=== PATIENT | male | born 1935 | race African-American/Black ===

== ENCOUNTER 2021-04-27 19:59 | Inpatient (IN) | payer OTHER ==
[~2021-04-27] VITALS: Ht 172.7 cm; Wt 69.9 kg
[2021-04-27] MEDS ORDERED: PIPERACILLIN/TAZ 3.375G PREMIX 50 ML IV ONE (20:15)
[2021-04-27] MEDS ORDERED: SODIUM CHLORIDE 0.9% 1,000 ML IV ONE (20:15)
[2021-04-27] MEDS ORDERED: VANCOMYCIN 1 G PREMIX 200 ML IV ONE (20:15)
[2021-04-27 20:48] LABS: HEMATOCRIT. 26.1 % (42.0-52.0); HEMOGLOBIN. 8.5 g/dL (14.0-18.0); MEAN CORPUSCULAR HEMOGLOBIN 31.9 pg (28.0-32.0); MEAN CORPUSCULAR VOLUME 97.7 fL (80.0-94.0); MEAN PLATELET VOLUME 8.5 fl (7.4-10.4); PLATELET 132 x1000/uL (130-400); RED BLOOD CELL COUNT 2.67 mill/uL (4.7-6.1); RED CELL DISTRIBUTION WIDTH 12.9 % (11.6-14.6)
[2021-04-27 20:53] LABS: CHLORIDE 111 mEq/L (98-107)
[2021-04-27 20:56] LABS: INR 1.3; PROTHROMBIN TIME 13.4 sec (9.6-11.0)
[2021-04-27 20:57] LABS: ETHANOL BLOOD < 10 mg/dL
[2021-04-27 21:21] LABS: PLATELET ESTIMATE NORMAL
[2021-04-27 21:22] LABS: CLARITY URINE CLOUDY (CLEAR); COLOR URINE YELLOW (YELLOW); KETONES URINE NEGATIVE (NEGATIVE); LEUKOCYTE ESTERASE URINE NEGATIVE (NEGATIVE); NITRITE URINE NEGATIVE (NEGATIVE); OCCULT BLOOD URINE NEGATIVE (NEGATIVE); PROTEIN URINE 1+ (NEGATIVE); SPECIFIC GRAVITY URINE 1.015 (1.005-1.030); UROBILINOGEN URINE 0.2 E.U./dL (0.2-1.0)
[2021-04-27 21:32] LABS: *AMPHETAMINES SCREEN URINE NEGATIVE (NEGATIVE); *BARBITURATES SCREEN URINE NEGATIVE (NEGATIVE)
[2021-04-27 21:33] LABS: *BENZODIAZEPINES SCREEN URINE NEGATIVE (NEGATIVE); *COCAINE SCREEN URINE NEGATIVE (NEGATIVE); CANNABINOID URINE SCREEN NEGATIVE (NEGATIVE); METHADONE URINE SCREEN NEGATIVE (NEGATIVE); OPIATES URINE SCREEN NEGATIVE (NEGATIVE); PHENCYCLIDINE URINE SCREEN NEGATIVE (NEGATIVE)
[2021-04-27 22:30] VITALS: BP 116/64
[2021-04-28] VITALS (12 sets, daily range): BP systolic 92–131; BP diastolic 22–70
[2021-04-28] MEDS ORDERED: DONE10TA43 PO (00:54)
[2021-04-28] MEDS ORDERED: LEVO75TA7 PO (00:54)
[2021-04-28] MEDS ORDERED: ACETAMINOPHEN 650MG/20.3ML UDC PO PRN (01:15)
[2021-04-28] MEDS ORDERED: VANCOMYCIN 1 G PREMIX 200 ML IV NR (02:00)
[2021-04-28] MEDS: DEXT 5%/0.45% NACL KCL 20MEQ/L 1,000 ML IV SCH ×2 (04:37→13:18)
[2021-04-28 05:11] LABS: CHLORIDE 111 mEq/L (98-107)
[2021-04-28] MEDS ORDERED: PIPERACILLIN/TAZOBACTAM 3.375 G/VIAL IV SCH (06:00)
[2021-04-28 06:01] LABS: HEMATOCRIT. 25.4 % (42.0-52.0); MEAN CORPUSCULAR HEMOGLOBIN 30.9 pg (28.0-32.0); MEAN CORPUSCULAR VOLUME 97.8 fL (80.0-94.0); MEAN PLATELET VOLUME 9.6 fl (7.4-10.4); PLATELET 122 x1000/uL (130-400); RED CELL DISTRIBUTION WIDTH 13.1 % (11.6-14.6)
[2021-04-28] MEDS: PIPERACILLIN/TAZOBACTAM 3.375 G in DEXT 5% WATER 100 ML IV SCH ×3 (06:45→21:22)
[2021-04-28] MEDS: LEVOTHYROXINE SODIUM 75MCG TABLET PO SCH (07:30)
[2021-04-28] MEDS: DONEPEZIL HCL 10MG TABLET PO SCH (08:56)
[2021-04-28] MEDS: PANTOPRAZOLE SODIUM 40 MG/VIAL IV SCH (08:57)
[2021-04-28] MEDS: ENOXAPARIN 40MG/0.4ML SYR SUBCUT SCH (08:58)
[2021-04-28] MEDS ORDERED: DEXTROSE 50% WATER 50ML SYRINGE IV PRN (10:15)
[2021-04-28 10:53] LABS: TOTAL IRON BINDING CAPACITY 114 ug/dL (250-450)
[2021-04-28] MEDS: BLOOD SUGAR DIAGNOSTIC STRIP TEST SCH ×3 (12:43→21:22)
[2021-04-28] MEDS: ACETAMINOPHEN 650MG SUPP PR PRN ×2 (13:19→22:00)
[2021-04-28] MEDS: INSULIN LISPRO 100 UNITS/ML SUBCUT SCH ×3 (13:20→21:23)
[2021-04-28 14:08] LABS: PLATELET ESTIMATE SLIGHTLY DECREASED
[2021-04-28] MEDS ORDERED: LORAZEPAM 2MG/ML CPJ IV NR (15:15)
[2021-04-28] MEDS: VANCOMYCIN 1 G PREMIX 200 ML IV SCH (17:57)
[2021-04-29] VITALS (11 sets, daily range): BP systolic 90–115; BP diastolic 28–68
[2021-04-29] MEDS: DEXT 5%/0.45% NACL KCL 20MEQ/L 1,000 ML IV SCH ×2 (03:21→09:21)
[2021-04-29] MEDS: PIPERACILLIN/TAZOBACTAM 3.375 G in DEXT 5% WATER 100 ML IV SCH ×3 (06:35→22:59)
[2021-04-29 06:36] LABS: HEMATOCRIT. 25.9 % (42.0-52.0); HEMOGLOBIN. 8.1 g/dL (14.0-18.0); MEAN CORPUSCULAR HEMOGLOBIN 30.2 pg (28.0-32.0); MEAN CORPUSCULAR VOLUME 96.6 fL (80.0-94.0); MEAN PLATELET VOLUME 9.3 fl (7.4-10.4); PLATELET 136 x1000/uL (130-400); RED BLOOD CELL COUNT 2.69 mill/uL (4.7-6.1); RED CELL DISTRIBUTION WIDTH 13.3 % (11.6-14.6)
[2021-04-29] MEDS: BLOOD SUGAR DIAGNOSTIC STRIP TEST SCH ×4 (07:30→21:00)
[2021-04-29] MEDS: LEVOTHYROXINE SODIUM 75MCG TABLET PO SCH (07:30)
[2021-04-29] MEDS: INSULIN LISPRO 100 UNITS/ML SUBCUT SCH ×3 (08:00→21:00)
[2021-04-29] MEDS: DONEPEZIL HCL 10MG TABLET PO SCH (09:00)
[2021-04-29] MEDS: PANTOPRAZOLE SODIUM 40 MG/VIAL IV SCH (09:19)
[2021-04-29] MEDS: ENOXAPARIN 40MG/0.4ML SYR SUBCUT SCH (09:20)
[2021-04-29 12:19] LABS: PLATELET ESTIMATE NORMAL
[2021-04-29] MEDS: VANCOMYCIN 1 G PREMIX 200 ML IV SCH (13:50)
[2021-04-29] MEDS: SODIUM CHLORIDE 0.45% 1,000 ML IV SCH (13:50)
[2021-04-29 19:38] LABS: VITAMIN B12 SERUM 1184 pg/mL (211-911)
[2021-04-30] VITALS (9 sets, daily range): BP systolic 91–127; BP diastolic 26–92
[2021-04-30] MEDS: PIPERACILLIN/TAZOBACTAM 3.375 G in DEXT 5% WATER 100 ML IV SCH (05:10)
[2021-04-30] MEDS: SODIUM CHLORIDE 0.45% 1,000 ML IV SCH ×2 (05:10→13:33)
[2021-04-30 06:28] LABS: HEMATOCRIT. 25.3 % (42.0-52.0); MEAN CORPUSCULAR HEMOGLOBIN 30.2 pg (28.0-32.0); MEAN CORPUSCULAR VOLUME 94.9 fL (80.0-94.0); MEAN PLATELET VOLUME 9.4 fl (7.4-10.4); PLATELET 157 x1000/uL (130-400); RED BLOOD CELL COUNT 2.67 mill/uL (4.7-6.1); RED CELL DISTRIBUTION WIDTH 13.1 % (11.6-14.6)
[2021-04-30] MEDS: BLOOD SUGAR DIAGNOSTIC STRIP TEST SCH ×2 (07:30→11:40)
[2021-04-30] MEDS: LEVOTHYROXINE SODIUM 75MCG TABLET PO SCH (07:30)
[2021-04-30] MEDS: DONEPEZIL HCL 10MG TABLET PO SCH (09:00)
[2021-04-30 10:21] LABS: PLATELET ESTIMATE NORMAL
[2021-04-30] MEDS ORDERED: MEROPENEM 2,000 MG in SODIUM CHLORIDE 0.9% 100 ML IV SCH ×2 (11:15→13:00)
[2021-04-30] MEDS: PANTOPRAZOLE SODIUM 40 MG/VIAL IV SCH (11:40)
[2021-04-30] MEDS ORDERED: VANCOMYCIN 1 G PREMIX 200 ML IV SCH ×2 (13:00)
[2021-04-30] MEDS ORDERED: VANCOMYCIN HCL 1000 MG/20 ML ORAL PO SCH (18:00)
== END 2021-04-30 18:36 | disposition short-term general hospital (02) | DRG 871 ==
LOC: ER 19:59 → 5EST 20:46 → EDBEDREQ 20:51 → EDBEDREQTM 20:51 → ENRESERV 21:43
PROVIDERS: ADMIT Internal Medicine; ATTEND Internal Medicine
DX: A41.9 Sepsis, unspecified organism (principal); R65.21 Severe sepsis with septic shock; E43 Unspecified severe protein-calorie malnutrition; N17.0 Acute kidney failure with tubular necrosis; G93.41 Metabolic encephalopathy; A04.9 Bacterial intestinal infection, unspecified; E11.9 Type 2 diabetes mellitus without complications; F03.90 Unspecified dementia, unspecified severity, without behavioral disturbance, psychotic disturbance, mood disturbance, and anxiety; E87.8 Other disorders of electrolyte and fluid balance, not elsewhere classified; D64.9 Anemia, unspecified; I10 Essential (primary) hypertension; Z68.23 Body mass index [BMI] 23.0-23.9, adult; Z89.612 Acquired absence of left leg above knee; L89.90 Pressure ulcer of unspecified site, unspecified stage; R62.7 Adult failure to thrive
CPT/HCPCS: 36415; 70551; 71045; 71250; 74176; 80048; 80053; 80202; 80305; 80320; 81003; 82270; 82607; 82728; 82962; 83036; 83540; 83550; 83605; 84145; 84443; 84484; 85025; 93005; 99291; C1893; C9113; J1650; J1815; J2060; J2185; J2543; J3370; J7030; J7060; G0480

== ENCOUNTER 2021-07-28 21:35 | Emergency (ER) | payer OTHER ==
[~2021-07-28] VITALS: Ht 170.2 cm; Wt 73.0 kg
[~2021-07-28 21:35] MED LIST: DONE10TA43 PO; LEVO75TA7 PO
[2021-07-28] MEDS ORDERED: ACETAMINOPHEN 325MG TABLET PO STA (21:47)
[2021-07-28] MEDS ORDERED: SODIUM CHLORIDE 0.9% 1000ML BAG (SEPSIS BOLUS) IV ONE (22:00)
[2021-07-28 23:04] LABS: HEMOGLOBIN. 8.3 g/dL (14.0-18.0); MEAN CORPUSCULAR HEMOGLOBIN 31.3 pg (28.0-32.0); MEAN CORPUSCULAR VOLUME 94.3 fL (80.0-94.0); MEAN PLATELET VOLUME 8.4 fl (7.4-10.4); PLATELET 231 x1000/uL (130-400); RED BLOOD CELL COUNT 2.65 mill/uL (4.7-6.1); RED CELL DISTRIBUTION WIDTH 14.2 % (11.6-14.6)
[2021-07-28 23:09] LABS: CHLORIDE 113 mEq/L (98-107)
[2021-07-28 23:26] LABS: PLATELET ESTIMATE NORMAL
[2021-07-28] MEDS ORDERED: VANCOMYCIN 1 G PREMIX 200 ML IV ONE (23:30)
[2021-07-28] MEDS ORDERED: PIPERACILLIN/TAZ 3.375G PREMIX 50 ML IV ONE (23:30)
[2021-07-29 00:21] LABS: CLARITY URINE CLOUDY (CLEAR); COLOR URINE YELLOW (YELLOW); KETONES URINE NEGATIVE (NEGATIVE); LEUKOCYTE ESTERASE URINE 3+ (NEGATIVE); NITRITE URINE POSITIVE (NEGATIVE); OCCULT BLOOD URINE TRACE (NEGATIVE); PH URINE 8.5 (4.5-8.0); PROTEIN URINE 1+ (NEGATIVE); SPECIFIC GRAVITY URINE 1.013 (1.005-1.030); UROBILINOGEN URINE 0.2 E.U./dL (0.2-1.0)
[2021-07-29 05:15] VITALS: BP 115/75
== END 2021-07-29 03:47 | disposition short-term general hospital (02) ==
LOC: ER 21:35 → CANBEDREQ 07-29 07:36
DX: A41.9 Sepsis, unspecified organism (principal); N30.00 Acute cystitis without hematuria; E11.65 Type 2 diabetes mellitus with hyperglycemia; E86.0 Dehydration; R41.82 Altered mental status, unspecified; R50.9 Fever, unspecified; F03.90 Unspecified dementia, unspecified severity, without behavioral disturbance, psychotic disturbance, mood disturbance, and anxiety; Z98.890 Other specified postprocedural states; Z79.899 Other long term (current) drug therapy
CPT/HCPCS: 36415; 71045; 80053; 81003; 83605; 84145; 84484; 85025; 87040; 87077; 87086; 87186; 93005; 96374; 96375; 99291; J2543; J3370; J7030

== ENCOUNTER 2021-08-10 17:52 | Inpatient (IN) | payer OTHER ==
[~2021-08-10] VITALS: Ht 172.7 cm; Wt 79.0 kg
[2021-08-10] MEDS ORDERED: ACETAMINOPHEN 650MG SUPP PR STA (20:06)
[2021-08-10] MEDS ORDERED: VANCOMYCIN 1 G PREMIX 200 ML IV ONE (20:15)
[2021-08-10] MEDS ORDERED: PIPERACILLIN/TAZ 3.375G PREMIX 50 ML IV ONE (20:15)
[2021-08-10] MEDS ORDERED: SODIUM CHLORIDE 0.9% 1000ML BAG (SEPSIS BOLUS) IV ONE (20:15)
[2021-08-10 21:49] LABS: HEMATOCRIT. 22.3 % (42.0-52.0); HEMOGLOBIN. 7.4 g/dL (14.0-18.0); MEAN CORPUSCULAR VOLUME 90.4 fL (80.0-94.0); MEAN PLATELET VOLUME 7.8 fl (7.4-10.4); PLATELET 185 x1000/uL (130-400); RED BLOOD CELL COUNT 2.47 mill/uL (4.7-6.1); RED CELL DISTRIBUTION WIDTH 16.1 % (11.6-14.6)
[2021-08-10 21:51] LABS: CLARITY URINE CLOUDY (CLEAR); COLOR URINE YELLOW (YELLOW); KETONES URINE NEGATIVE (NEGATIVE); LEUKOCYTE ESTERASE URINE 3+ (NEGATIVE); NITRITE URINE NEGATIVE (NEGATIVE); OCCULT BLOOD URINE 1+ (NEGATIVE); PH URINE 6.5 (4.5-8.0); PROTEIN URINE 1+ (NEGATIVE); SPECIFIC GRAVITY URINE 1.013 (1.005-1.030); UROBILINOGEN URINE 0.2 E.U./dL (0.2-1.0)
[2021-08-10 21:57] LABS: CHLORIDE 113 mEq/L (98-107)
[2021-08-10] MEDS ORDERED: METRONIDAZOLE 500 MG PREMIX 100 ML IV ONE (22:00)
[2021-08-10 22:01] LABS: INR 1.2; PROTHROMBIN TIME 12.4 sec (9.6-11.0)
[2021-08-10 22:06] LABS: CREATINE KINASE 455 IU/L (39-308)
[2021-08-10 22:15] LABS: PLATELET ESTIMATE NORMAL
[2021-08-10] MEDS ORDERED: DEXTROSE 50% WATER 50ML SYRINGE IV SCH (22:15)
[2021-08-11] VITALS (9 sets, daily range): BP systolic 90–118; BP diastolic 40–83
[2021-08-11] MEDS ORDERED: DEXT 5%/LACTATED RINGERS 1,000 ML IV ONE (01:00)
[2021-08-11] MEDS ORDERED: ONDANSETRON HCL 4MG/2ML INJ IV PRN (08:15)
[2021-08-11] MEDS ORDERED: ACETAMINOPHEN 325MG TABLET PO PRN (08:15)
[2021-08-11] MEDS: DEXT 5%/0.45% NACL 1000ML 1,000 ML IV SCH ×2 (09:11→22:34)
[2021-08-11] MEDS: PIPERACILLIN/TAZOBACTAM 3.375 G in DEXTROSE 5% WATER 50 ML IV SCH ×2 (11:04→14:18)
[2021-08-11] MEDS ORDERED: VANCOMYCIN 1 G PREMIX 200 ML IV SCH (12:00)
[2021-08-11] MEDS: CEFEPIME 2,000 MG in DEXT 5% WATER 100 ML IV SCH (18:32)
[2021-08-11] MEDS: VANCOMYCIN HCL 1000 MG/20 ML ORAL PO SCH (18:32)
[2021-08-12] VITALS (12 sets, daily range): BP systolic 80–128; BP diastolic 38–96
[2021-08-12] MEDS: VANCOMYCIN HCL 1000 MG/20 ML ORAL PO SCH ×4 (01:34→17:55)
[2021-08-12] MEDS: CEFEPIME 2,000 MG in DEXT 5% WATER 100 ML IV SCH ×2 (05:22→17:55)
[2021-08-12 08:13] LABS: HEMATOCRIT. 22.2 % (42.0-52.0); HEMOGLOBIN. 7.2 g/dL (14.0-18.0); MEAN CORPUSCULAR HEMOGLOBIN 29.6 pg (28.0-32.0); MEAN CORPUSCULAR VOLUME 91.8 fL (80.0-94.0); MEAN PLATELET VOLUME 8.1 fl (7.4-10.4); PLATELET 207 x1000/uL (130-400); RED BLOOD CELL COUNT 2.42 mill/uL (4.7-6.1); RED CELL DISTRIBUTION WIDTH 16.3 % (11.6-14.6)
[2021-08-12 08:38] LABS: CHLORIDE 114 mEq/L (98-107)
[2021-08-12] MEDS: DEXT 5%/0.45% NACL 1000ML 1,000 ML IV SCH (12:15)
[2021-08-12 21:54] LABS: PLATELET ESTIMATE NORMAL
[2021-08-14 07:07] LABS: A/G RATIO 0.5 (0.7-1.7); ALBUMIN 1.7 g/dL (2.9-4.4); ALPHA-1-GLOBULIN 0.5 g/dL (0.0-0.4); ALPHA-2-GLOBULIN 0.6 g/dL (0.4-1.0); BETA GLOBULIN 1.1 g/dL (0.7-1.3); GAMMA GLOBULINS 1.2 g/dL (0.4-1.8); GLOBULIN TOTAL 3.4 g/dL (2.2-3.9); M-SPIKE Not Observed g/dL (Not Observed); TOTAL PROTEIN SERUM 5.1 g/dL (6.0-8.5)
== END 2021-08-12 20:30 | disposition short-term general hospital (02) | DRG 871 ==
LOC: ER 17:52 → MICUSO 08-11 00:09 → EDBEDREQDT 08-11 00:12 → EDBEDREQTM 08-11 00:12 → EDBEDREQ 08-11 00:12 → 5EST 08-11 04:29
PROVIDERS: ADMIT Internal Medicine; ATTEND Internal Medicine
DX: A41.50 Gram-negative sepsis, unspecified (principal); E43 Unspecified severe protein-calorie malnutrition; N39.0 Urinary tract infection, site not specified; C90.00 Multiple myeloma not having achieved remission; K56.49 Other impaction of intestine; D64.9 Anemia, unspecified; R65.20 Severe sepsis without septic shock; K52.9 Noninfective gastroenteritis and colitis, unspecified; K62.89 Other specified diseases of anus and rectum; I10 Essential (primary) hypertension; E11.649 Type 2 diabetes mellitus with hypoglycemia without coma; E87.8 Other disorders of electrolyte and fluid balance, not elsewhere classified; F03.90 Unspecified dementia, unspecified severity, without behavioral disturbance, psychotic disturbance, mood disturbance, and anxiety; Z68.26 Body mass index [BMI] 26.0-26.9, adult; Z20.822 Contact with and (suspected) exposure to COVID-19
CPT/HCPCS: 36415; 71045; 74177; 80048; 80053; 81003; 82378; 82550; 82962; 83605; 83880; 84145; 84155; 84165; 84484; 85025; 87077; 87186; 87426; 92610; 93005; 99291; J0692; J2543; J3370; J3490; J7030; J7060